=== PATIENT | female | born 1990 | race Caucasian/White ===

== ENCOUNTER 2017-08-30 06:59 | Emergency (ER) | payer SELFPAY ==
[~2017-08-30 06:59] MED LIST: BACT800T5 PO; CEPH500C3 PO; IBUP800T23 PO
[2017-08-30 07:00] VITALS: BP 144/95; PULSE 105; RESP 20; TEMP 97.7; O2SAT 99
[2017-08-30] MEDS ORDERED: SUBO2MIS SL (07:14)
--- NOTE | 2017-08-30 07:26 | PD ---
HPI . Back pain Chief Complaint: Flank/Kidney Pain Time Seen by Provider: 07:09 Travel History International Travel<30 days: No Contact w/Intl Traveler<30days: No Traveled to known affect area: No History of Present Illness HPI Patient presents with a chief complaint of lower abdominal cramping which started last night. The pain waxes and wanes. She rates it 8/10. It is associated with nausea. She has subsequently developed low back pain which started today. She describes the back pain as a pressure/stabbing sensation. The back pain is exacerbated by laying down. She denies any urinary tract symptoms such as dysuria, frequency or urgency. She denies any [employer] symptoms such as vaginal discharge or abnormal vaginal bleeding. She denies any GI symptoms except for the nausea. Specifically, no diarrhea or constipation. PFSH Past Medical History Diminished Hearing: No Immunizations Current: Yes Tetanus Vaccination: Unknown ?: Not LMP: X1 WEEK Past Surgical History Cholecystectomy: Yes Social History Alcohol Use: No Tobacco Use: No (1/2 PPD/ denies at this time) Substance Use: No Allergies-Medications (Allergen,Severity, Reaction): Coded Allergies: No Known Allergies (Verified Adverse Reaction, Unknown, 08/30/17) Reported Meds & Prescriptions Reported Meds & Active Scripts Active Reported Suboxone Sublingual Film (Buprenorphine-Naloxone Sublingual Film) 2-0.5 Mg Film 1 Film SL DAILY@1600 Unique ID number required: Review of Systems Except as stated in HPI: all other systems reviewed are Neg Physical Exam Narrative GENERAL: Awake and alert and in no acute distress. SKIN: warm/dry. HEAD: Normocephalic. Atraumatic. EYES: Pupils equal and round. Extraocular movements are intact. ENT: Mucous membranes pink and moist. NECK: Supple. Full range of motion without pain.. CARDIOVASCULAR: Regular rate and rhythm. RESPIRATORY: No accessory muscle use. Clear to auscultation. Breath sounds equal bilaterally. GASTROINTESTINAL: Abdomen soft. Suprapubic tenderness. Bowel sounds present. Nondistended. : No CVA tenderness. Cath UA was done during the pelvic examination. Her urine is cloudy. She does not have any significant discharge in the vaginal vault. Cervical loss is closed. There is no cervical motion tenderness or adnexal tenderness. MUSCULOSKELETAL: No obvious deformities. Normal muscle tone. Her back pain is in the low back. It is bilateral. She has minimal tenderness to palpation of the low back. No midline tenderness to percussion. NEUROLOGICAL: Awake and alert. No obvious cranial nerve deficits. Motor grossly within normal limits. Normal speech. PSYCHIATRIC: Appropriate mood and affect; insight and judgment normal. Data Data Last Documented VS Vital Signs Date Time Temp Pulse Resp B/P (MAP) Pulse Ox O2 Delivery O2 Flow Rate FiO2 08/30/17 07:11 16 08/30/17 07:00 97.7 105 144/95 (111) 99 Orders Orders Ed Urine Pregnancytest Poc (08/30/17 07:10) Urinalysis - C+S If Indicated (08/30/17 07:10) Gc And Chlamydia Pcr (08/30/17 07:22) Wet Prep Profile (08/30/17 07:22) Urine Culture (08/30/17 07:37) Labs Laboratory Tests Test 08/30/17 07:37 Urine Collection Type CATH Urine Color YELLOW Urine Turbidity SL CLOUDY Urine pH 6.0 Urine Specific [employer] 1.025 Urine Protein 100 mg/dL Urine Glucose (UA) NEG mg/dL Urine Ketones NEG mg/dL Urine Occult Blood LARGE Urine Nitrite NEG Urine Bilirubin NEG Urine Urobilinogen 0.2 MG/DL Urine Leukocyte Esterase SMALL Urine RBC 100-200 /hpf Urine WBC 25-49 /hpf Urine WBC Clumps MOD Microscopic Urinalysis Comment CATH-CULTURE IND MDM Medical Decision Making Medical Screen Exam Complete: Yes Emergency Medical Condition: Yes Differential Diagnosis Differential diagnosis of pelvic pain includes but is not limited to UTI, PID, ectopic , spontaneous AB, constipation, viral illness Narrative Course This patient presents with lower abdominal cramping which started last night and now low back pain which started this morning. She has suprapubic tenderness on abdominal exam. She does not have any CVA tenderness. The most likely etiology of her symptoms is PID. A pelvic exam will be done. Pelvic exam was benign. However, cath UA done during the pelvic exam shows cloudy urine. HCG neg. UA>>small LE, 100-200 RBCs, 25-49 WBCs, mod WBC clumps Wet prep negative She will be discharged with a prescription for Keflex. Diagnosis Primary Impression: Pelvic pain Additional Impressions: Low back pain Qualified Codes: M54.5 - Low back pain Urinary tract infection Qualified Codes: N39.0 - Urinary tract infection, site not specified Patient Instructions: General Instructions, Urinary Tract Infection in (GEN) Med/Other Pt SpecificInfo: Prescription(s) given Scripts Ibuprofen (Ibuprofen) 800 Mg Tab 800 MG PO Q8H Y for Pain/Inflammation, #60 TAB 0 Refills Prov: Deepika Catherine MD 08/30/17 Cephalexin (Keflex) 500 Mg Capsule 500 MG PO TID for Infection for 7 Days, CAP 0 Refills Prov: Deepika Catherine MD 08/30/17 Disposition: 01 DISCHARGE HOME Condition: Stable Deepika Catherine MD Aug 30, 2017 07:26
[2017-08-30 07:46] LABS: BILIRUBIN, URINE NEG (NEG); BLOOD, URINE LARGE (NEG); GLUCOSE,URINE NEG (NEG); KETONE, URINE NEG (NEG); NITRITE,URINE NEG (NEG); URINE COLOR YELLOW (YELLW/STRAW); URINE LEUKOCYTE ESTERASE SMALL (NEG)
[2017-08-30 07:55] LABS: RBC, URINE 100-200 /hpf (0-3); WHITE BLOOD CELL CLUMPS MOD
[2017-08-30] MEDS ORDERED: CEPH-460 PO (08:00)
[2017-08-30] MEDS ORDERED: IBUP1TAB7 PO (08:00)
[2017-08-30] MEDS ORDERED: IBUPROFEN 800 MG TAB PO ONE (08:15)
[2017-08-30] MEDS ORDERED: CEPHALEXIN MONOHYDRATE 500 MG CAP PO ONE (08:15)
[2017-08-30] MEDS ORDERED: cefTRIAXone INJ 1,000 MG in SODIUM CHLORIDE 0.9% INJ 100 ML IV ONE (08:15)
[2017-08-30] MEDS ORDERED: KETOROLAC TROMETHAMINE 30 MG/ML (IVP) VIAL IV PUSH ONE (08:15)
== END 2017-08-30 09:32 | disposition home or self-care (01) ==
LOC: PHED 06:59
DX: R10.2 Pelvic and perineal pain (principal); M54.5 Low back pain; N39.0 Urinary tract infection, site not specified; B96.20 Unspecified Escherichia coli [E. coli] as the cause of diseases classified elsewhere; R11.0 Nausea
CPT/HCPCS: 81001; 84703; 87077; 87086; 87186; 87210; 87491; 87591; 96365; 96372; 99284; J0696; J1885